=== PATIENT | female | born 1930 | race Caucasian/White ===

== ENCOUNTER 2016-06-17 18:24 | Emergency (ER) | payer MEDICARE ==
[~2016-06-17 18:24] MED LIST: ALPHAGAN P5 M1 OU; ALPHAGAN P5 ML; B-12 INJ1000 MCG/M IM; BREWER'S YEAST500 MG PO; DRAMAMINE50 M1 PO; DURAGESIC-1212 MCG TP; FOLVITE-DPS1 MG PO; HYDROCODONE 10M10 MG PO; IRON325 M1 PO; KLONOPIN DPS0.5 MG PO; KLONOPIN WAFE0.25 MG PO; MAALOX DPS30 ML PO; MAG-OX400 MG PO; MYLICON DPS80 MG PO; NUCYNTA50 MG PO; OYSTER SHELL C500 MG PO; PEPCID DPS20 MG PO; PRESERVISION A1 EAC1 PO; PRESERVISION A1 EAC2 PO; ROCALTROL DPS0.5 MCG PO; SOD BICARB TAB650 MG PO; SURFAK DPS240 MG PO; SYNTHROID112 MCG; SYNTHROID112 MCG PO; VITAMIN B-121000 MCG PO; ZANTAC DPS150 MG PO; ZYLOPRIM-DPS100 MG PO
--- NOTE | 2016-06-19 19:07 | ER ---
ADMIT: 06/17/2016 RM/LOC: ER [facility] MR#: [id number] 2620 [facility] [address] [place] [phone] MERLIN JACKMAN [address] [place] [id number] Emergency Room Report SEX: F AGE: 86 : 1930 DATE: 06/17/2016 HISTORY OF PRESENT ILLNESS: The patient is an 86-year-old female with past medical history of colorectal cancer, status post colectomy, colostomy, urostomy, and radiation and chemo. The patient states recently she has been diagnosed with multiple episodes of dehydration and attenuating kidney function. Dr. Garduno is closely following up with the patient, and last week, the patient visited Dr. Garduno. Two days ago, the patient went to the [facility] for IV fluid for dehydration. The patient states she does not feel very good because she felt general weakness and feels dehydrated and was not able to drink well as before. The patient denies any new focal weakness, denies any headaches, nausea, vomiting, new chest pain, shortness of breath, or abdominal pain. PHYSICAL EXAMINATION: VITAL SIGNS: The patient has stable vitals, was afebrile, in no obvious distress or pain. GENERAL: The patient was slightly lethargic. HEENT: Mucous membranes were dry. Sclera was nonicteric and conjunctiva was not pale. The patient had 3 mm pupils PERRLA, pupils are equal, round, and reactive to light, and normal extraocular movement. CHEST: Clear to auscultation bilaterally. HEART: Normal heart sounds without any murmur or extra sounds. ABDOMEN: Soft. Colostomy bag with green brown stool inside and gas is observed. Urostomy bag with slightly turbid yellow urine was observed in the left lower quadrant. Abdomen is soft and nontender. EXTREMITIES: There is mild swelling in bilateral lower extremities without any tenderness. The patient states it is her baseline. NEURO: Exam is negative and normal. The rest of the physical exam is noncontributory. LABORATORY AND X-RAY DATA: EKG was normal sinus rhythm without any ST or T changes or arrhythmia or Q-waves. Troponin I was also negative too. Chest x- ray was negative for any infiltration or acute changes. WBC was 11.9 with hemoglobin of 10.4 and platelet of 351. Magnesium was 1.6. Sodium 132 with potassium of 3.5. Glucose was 98 and creatinine level was 1.5. Urine was taken from the urostomy bag and has 116 wbc and 3 rbc. Lactic acid was 1.0. EMERGENCY DEPARTMENT COURSE: The patient received 1 L of normal saline for dehydration, also received magnesium sulfate 2 g, for both low magnesium and ADMIT: 06/17/2016 RM/LOC: [facility] MR#: [id number] [facility] [id number] MERLIN JACKMAN [address] [place] [address] Emergency Room Report SEX: F AGE: 86 : 1930 also prolonged QT intervals. The patient had creatinine of 1.2 to 1.5 before and recently has been followed up for chronic kidney disease. Urine could be signs of urinary infection, but the patient had no CVA tenderness and no fever, at the same time it could be just positive because of the method of taking the urine. The patient states she has allergy to many and, per patient, to all the antibiotics. The patient's prefers not to get any antibiotics and states she will let her doctor know about the lab results so they can follow up the next working day. The patient states after IV fluids, she feels way better. The patient was re-examined, did not develop any new symptoms. The patient is stable to be discharged to home. The patient would contact a primary doctor the next working day. She acknowledged she understood the plan and she agreed upon it. Onesimo Joseph MD/ emanuel JOB #: [id number] CC: Kevin Puentes MD, Attending Physician Ernie Story MD, Family Physician
[2016-11-21] MEDS ORDERED: COLACE-DPS100 MG PO (14:19)
[2016-11-21] MEDS ORDERED: FOLVITE-DPS1 MG PO (14:20)
[2016-11-21] MEDS ORDERED: CULTURELLE1 CAP PO (14:20)
[2016-11-21] MEDS ORDERED: HYDROCODON-ACE1 EAC2 PO (14:21)
[2016-11-21] MEDS ORDERED: MAG-OX400 MG PO (14:21)
[2016-11-21] MEDS ORDERED: OYSTER SHELL 21 EACH PO (14:22)
[2016-11-21] MEDS ORDERED: PHOS-LO667 MG PO (14:22)
[2016-11-21] MEDS ORDERED: SOD BICARB TAB650 MG PO (14:23)
[2016-11-21] MEDS ORDERED: THERAPEUTIC MUL1 TAB PO (14:23)
[2016-11-21] MEDS ORDERED: TOPROL XL25 MG PO (14:24)
[2016-11-21] MEDS ORDERED: ZOFRAN4 MG PO (14:26)
[2016-11-21] MEDS ORDERED: INVANZ1 GM IV ×2 (14:29→14:30)
== END 2016-06-17 21:50 | disposition home or self-care (01) ==
LOC: ER 18:24
DX: N18.9 Chronic kidney disease, unspecified (principal); E86.0 Dehydration; Z88.0 Allergy status to penicillin; Z88.8 Allergy status to other drugs, medicaments and biological substances

== ENCOUNTER 2016-11-13 16:01 | Inpatient (IN) | payer MEDICARE ==
[~2016-11-13] VITALS: Ht 149.9 cm; Wt 49.0 kg
--- NOTE | ~2016-11-13 | WND ---
ADMIT: 11/13/2016 RM/LOC: 419 [facility] MR#: [id number] 2620 [facility] [address] [place] [id number] HALEY JACKMAN [address] [place] [address] Wound Care Clinic SEX: F AGE: 86 : 1930 DATE OF VISIT: 11/15/2016 TIME OF VISIT: 10 minutes. REASON FOR CONSULT: Stage II pressure ulcer to buttocks. This is a request for wound care from Dr. Story. HISTORY OF PRESENT ILLNESS: Haley is an 86-year-old female with a past medical history of colorectal cancer and cervical cancer with colostomy and urostomy, admitted through the emergency room on November 13, 2016, for failure to thrive, acute kidney injury on chronic kidney disease. She is being seen today for stage II pressure ulcer reported by nursing staff to buttocks. Juan Casiano, MSN, CWON seen her yesterday and placed a Mepilex Border with request to change 2 times a week. Juan reported to me that she said it was reactive hyperemia. PAST MEDICAL HISTORY: History of hypoparathyroidism with hypocalcemia and hypovitamin D. 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 Osteoarthritis, history of thyroidectomy, and subsequent hypothyroidism. ALLERGIES: Penicillin, Cleocin, Levaquin, Demerol, Flagyl, and MSG. MEDICATIONS: 1. Colace. 2. Culturelle. 3. Folvite. 4. Hydrocodone. 5. Klonopin. 6. Mag-Ox. 7. PhosLo. 8. Rocaltrol. 9. Synthroid. 10.Therapeutic multivitamin. 11.Zyloprim. 12.Brimonidine tartrate. 13.Lovenox. 14.Sodium chloride. 15.Normal saline. SOCIAL HISTORY: She is . She resides in [place]. She denies any alcohol or tobacco use. She occasionally drinks alcohol. FAMILY HISTORY: Positive for cancer. REVIEW OF SYSTEMS: She reports generalized fatigue. She is denying any complaints of pain, fever, or chills. She denies any complaints of nausea, vomiting, or diarrhea. ADMIT: 11/13/2016 RM/LOC: 419 [facility] MR#: [id number] 2620 [facility] [address] [place] [phone] HALEY JACKMAN [address] [place] [address] Wound Care Clinic SEX: F AGE: 86 : 1930 PHYSICAL EXAMINATION: VITAL SIGNS: Blood pressure 113/63, pulse ox 97%, pulse 95, respirations 16, and temperature 98.7 degrees Fahrenheit. GENERAL: Assessment reveals an alert and oriented 86-year-old female. Haley is currently lying in her hospital bed with the head of the bed at 45 degrees. She is sleeping supine. EXTREMITIES: Assessment of her coccyx and sacrum area reveals blanching erythema over bony prominent area that measures 4 cm in length x 3.5 cm in width. There are no open areas noted. Her heels are intact bilateral without any signs or symptoms of pressure injury. ASSESSMENT: Reactive hyperemia to her sacrococcygeal region. PLAN: Low air loss mattress overlay. Reposition her from right to left to back every 2 hours. Please keep head of the bed less than 30 degrees. Apply Aloe North Star to the sacrococcygeal area t.i.d. and p.r.n. Wound Care will continue to follow as needed. I would like to thank Dr. Story for allowing us to participate in her care. Betty Harvey APRN/ emanuel JOB #: [id number] CC: Ernie Story, Attending Physician Ernie Story, Family Physician
--- NOTE | 2016-11-15 22:05 | ER ---
ADMIT: 11/13/2016 RM/LOC: 419 [facility] MR#: [id number] 2620 [facility] [address] [place] [phone] PAD[address]LOUMERLIN [address] [place] [address] Emergency Room Report SEX: F AGE: 86 : 1930 DATE: 11/13/2016 SUBJECTIVE: The patient is an 86-year-old female with a past medical history of a colorectal cancer and also cervical cancer, status post colectomy, colostomy, and urostomy and radiation therapy and chemo. The patient came to the ER with a chief complaint of feeling generally weak and not having the appetite and not eating or drinking well recently. The patient also complains of mild generalized abdominal pain. The patient was signed out to me from previous shift to follow up. Refer to the T-sheet and the main dictations. PHYSICAL EXAMINATION: GENERAL: In the ER, the patient was in no pain, and was afebrile. HEAD AND NECK: The patient looked cachectic. Mucous membranes were dry. CHEST: Clear bilaterally. ABDOMEN: Soft and there are bags of colostomy and urostomy with contents. EXTREMITIES: There is no swelling of the extremities. The rest of the physical exam is negative and noncontributory. LABORATORY DATA: Lab work was suggestive of elevated creatinine from previous levels of 1.1 and 1.3 to 2.4. BUN was also elevated at 38. The patient received another half a liter of fluid, had already received half a liter of fluids in the previous shift. The rest of the lab works were noncontributory. Internal Medicine was consulted and with diagnosis of failure to thrive and acute kidney injury and overall with a chronic kidney disease, the patient was admitted for further followups and treatments. Onesimo Joseph MD/ emanuel JOB #: [id number] CC: Ernie Story MD, Attending Physician Ernie Story MD, Family Physician
[2016-11-21] MEDS ORDERED: COLACE-DPS100 MG PO (14:19)
[2016-11-21] MEDS ORDERED: FOLVITE-DPS1 MG PO (14:20)
[2016-11-21] MEDS ORDERED: CULTURELLE1 CAP PO (14:20)
[2016-11-21] MEDS ORDERED: HYDROCODON-ACE1 EAC2 PO (14:21)
[2016-11-21] MEDS ORDERED: MAG-OX400 MG PO (14:21)
[2016-11-21] MEDS ORDERED: OYSTER SHELL 21 EACH PO (14:22)
[2016-11-21] MEDS ORDERED: PHOS-LO667 MG PO (14:22)
[2016-11-21] MEDS ORDERED: SOD BICARB TAB650 MG PO (14:23)
[2016-11-21] MEDS ORDERED: THERAPEUTIC MUL1 TAB PO (14:23)
[2016-11-21] MEDS ORDERED: TOPROL XL25 MG PO (14:24)
[2016-11-21] MEDS ORDERED: ZOFRAN4 MG PO (14:26)
[2016-11-21] MEDS ORDERED: INVANZ1 GM IV ×2 (14:29→14:30)
--- NOTE | 2016-11-23 16:06 | HP ---
ADMIT: 11/13/2016 RM/LOC: 419 [facility] MR#: [id number] 2620 [facility] [address] [place] [phone] MERLIN JACKMAN [address] [place] [address] History and Physical SEX: F AGE: 86 : 1930 DATE OF SERVICE: CHIEF COMPLAINT: Nausea, vomiting, and abdominal pain. HISTORY OF PRESENT ILLNESS: This is an 86-year-old female, who has an extensive past medical history. She has been not feeling well over the previous few days, has been having more nausea and vomiting and presented to the ER with this. She was found to have an elevated creatinine on top of her chronic kidney disease. She does not give me much history. She is overly weak and tired. She does state that her back has been bothering her more. 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 This has been a little bit better lately. It should be noted in her history that I had seen her in August, we did clindamycin, but those really had not helped her symptoms very much. In between, she had some anemia. She has had a little bit more lower extremity swelling for which she was put on Lasix back in September, but she has gradually been declining over these past couple of months. Faxed labs earlier in October showed an albumin of 2.9, which decreased over the previous few months down from 3.3. Sedimentation rate on November 02 was 119. She had an echo recently and this was okay except for some mild valvular abnormalities, the EF was okay. PAST MEDICAL HISTORY: Significant for: 1. B12 deficiency. 2. Chronic kidney disease, stage 3. 3. History of radiation-induced colitis. 4. History of urostomy and an ileostomy. 5. She has hypoparathyroidism with chronic hypocalcemia. 6. Hypothyroidism. 7. Intestinal malabsorption. 8. 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 9. She has severe spinal stenosis with neurogenic claudication. 10.Vitamin D deficiency. 11.Restless legs syndrome. 12.Hyperuricemia. MEDICATIONS: Include: 1. Allopurinol. 2. Alphagan eye drops. 3. Calcium acetate. 4. Calcium carbonate. 5. Clonazepam. 6. Iron sulfate. 7. Folic acid. 8. Lasix. 9. Glucosamine chondroitin sulfate. 10.Hydrocodone. 11.Lactinex. 12.Synthroid 112 mcg. ADMIT: 11/13/2016 RM/LOC: 419 [facility] MR#: [id number] [address] [phone] CRJULIEN MERLIN A [address] [place] [address] History and Physical SEX: F AGE: 86 : 1930 13.Magnesium. 14.Multivitamin. 15.Potassium 20 mEq. 16.Zantac. 17.Lutein vitamin. 18.She also gets vitamin B12 shots. SOCIAL HISTORY: She is a never smoker. Occasional alcohol but none recent. She is . ALLERGIES: CEPHALOSPORINS, DEMEROL, METRONIDAZOLE, PENICILLINS, AND QUINOLONES. ALL OF WHICH SHE GETS A RASH FROM. IMMUNIZATIONS: She had a Prevnar in 2014 and Pneumovax in 2010, shingles in 2011 with Tdap in 2012. REVIEW OF SYSTEMS: Other complete review of systems obtained and negative except as above. PHYSICAL EXAMINATION: VITAL SIGNS: Per the admission chart data. GENERAL: This is an ill-appearing 86-year-old female. She appears her stated age. She is in no apparent distress. She is alert. She is oriented. Voice is very quiet. HEENT: Pupils are equal, round, and reactive to light and accommodation. Extraocular muscles are intact. Her throat is clear but dry. Poor dentition. NECK: Supple. Trachea midline. Thyroid is not palpable. HEART: Regular rate and rhythm. LUNGS: Diminished but clear bilaterally. ABDOMEN: Has two ostomies in place. She has an ileostomy and urostomy in place. ABDOMEN: Diffusely tender, but not severely. EXTREMITIES: Lower extremities have trace to 1+ edema bilaterally. She has 4/5 weakness in upper and lower extremities bilaterally. She has moderate kyphosis. SKIN: Shows thin skin. LABORATORY AND X-RAY DATA: Per the chart. ASSESSMENT: 1. Acute kidney injury on chronic kidney disease. 2. Weakness. 3. Dehydration. ADMIT: 11/13/2016 RM/LOC: 419 [facility] MR#: [id number] [address] [address] CRUMRINE, MERLIN A [address] [place] [address] History and Physical SEX: F AGE: 86 : 1930 4. Nausea, vomiting. 5. Abdominal pain. 6. Chronic hypoparathyroidism. 7. Ileostomy. 8. Urostomy. PLAN: She is admitted to hospital. We will give her some IV fluid. Looks like she is already improving a little bit. We will try to get a urine sample from her as this maybe the cause of her symptoms and we will need to do a carbapenem given her allergies. Hopefully that would treat what were needed to treat. Ernie Story MD/ emanuel JOB #: [id number] CC: Ernie Story, Attending Physician Ernie Story, Family Physician
--- NOTE | 2016-11-27 07:49 | DS ---
ADMIT: 11/13/2016 RM/LOC: 419 [facility] MR#: [id number] 2620 [facility] [address] [place], [place] [id number] MERLIN JACKMAN [address] [place] [id number] General Discharge Summary SEX: F AGE: 86 : 1930 ADMISSION DATE: 11/13/2016 DISCHARGE DATE: 11/20/2016 33 minutes spent on the day of discharge in discharge-related activities. FINAL DIAGNOSES: 1. Urinary tract infection. 2. Acute kidney injury on chronic kidney disease. 3. Malnutrition. 4. Atrial fibrillation. 5. Hypocalcemia. 6. Weakness. 7. Elevated sedimentation rate. 8. Nausea. REASON FOR ADMISSION: This is an 86-year-old female with multiple chronic problems, presented with abdominal pain and weakness. She was found to have renal failure. HOSPITAL COURSE: She was admitted and given some IV fluid. She had a cath UA of her urostomy, which did grow Klebsiella pneumonia, which was sensitive, but she had so many allergies, we placed her on meropenem as her only source. She had severe malnutrition and had some pressure sores. She had troubles with eating. She refused a modified barium swallow. She had a PICC line placed. Continued to have therapy. Her calcium continued to be extremely low. She was given continued oral calcium and daily calcitriol. She has known hypoparathyroidism, low calciums in the past. She denied any muscle cramps or other problems. She had some atrial fibrillation with RVR. She maintained in sinus rhythm after that after being placed on Toprol and given a little magnesium. Then, it was felt best if she would arrange to go to a skilled care given her inability to get around very well, so this was done on the day of discharge. 1. She will have 10 more days of ertapenem 500 mg daily. 2. Colace 100 mg daily. 3. Culturelle one daily. 4. Folic acid 1 mg daily. 5. Hydrocodone 7.5 q.i.d. 6. Klonopin 0.5 mg at bedtime. 7. Magnesium oxide 400 mg daily. 8. Calcium 1000 mg q.i.d. 9. PhosLo t.i.d. with meals. 10.Calcitriol 0.5 mcg daily. 11.Sodium bicarb 650 mg b.i.d. ADMIT: 11/13/2016 RM/LOC: 419 [facility] MR#: [id number] 2620 [facility] [address] [place] [phone] MERLIN JACKMAN [address] [place] [address] General Discharge Summary SEX: F AGE: 86 : 1930 12.Synthroid 112 mcg daily. 13.PreserVision one daily. 14.Toprol-XL 25 mg daily. 15.Allopurinol 100 mg daily. 16.Brimonidine/Alphagan eyedrops one OU t.i.d. 17.Hydrocodone q.4h p.r.n. 18.Max dose of Tylenol 3000 mg per day. 19.Zofran 4 mg p.o. or IV q.6h p.r.n. 20.Regulat supplement t.i.d. CMP on 11/23. She will have PT, OT, and speech therapy, and daily weights. See me in 10 days. Ernie Story MD/ emanuel JOB #: [id number] CC: Ernie Story MD, Attending Physician Ernie Story MD, Family Physician
== END 2016-11-20 10:30 | DRG 682 ==
LOC: ER 16:01 → 4PCU 20:10
PROVIDERS: ADMIT Internal Medicine
PROC: 3E0234Z Introduction of Serum, Toxoid and Vaccine into Muscle, Percutaneous Approach (ICD-10-PCS; principal; 2016-11-20)
DX: N17.9 Acute kidney failure, unspecified (principal); E43 Unspecified severe protein-calorie malnutrition; N39.0 Urinary tract infection, site not specified; I48.91 Unspecified atrial fibrillation; B96.1 Klebsiella pneumoniae [K. pneumoniae] as the cause of diseases classified elsewhere; D63.1 Anemia in chronic kidney disease; N82.3 Fistula of vagina to large intestine; Z68.1 Body mass index [BMI] 19.9 or less, adult; E53.8 Deficiency of other specified B group vitamins; G25.81 Restless legs syndrome; E55.9 Vitamin D deficiency, unspecified; Z93.6 Other artificial openings of urinary tract status; Z23 Encounter for immunization; N18.3 Chronic kidney disease, stage 3 (moderate); M48.00 Spinal stenosis, site unspecified; E20.9 Hypoparathyroidism, unspecified; M40.209 Unspecified kyphosis, site unspecified; E03.9 Hypothyroidism, unspecified; Z85.038 Personal history of other malignant neoplasm of large intestine; Z85.41 Personal history of malignant neoplasm of cervix uteri; Z93.2 Ileostomy status; Z66 Do not resuscitate